=== PATIENT | male | born 1950 | race Caucasian/White ===

== ENCOUNTER 2019-07-06 07:23 | Day surgery (SDC) | payer MEDICARE, OTHER ==
[~2019-07-06 07:23] MED LIST: KETOROLAC TROMETHAMINE 0.45% 4 DROP/0.4 ML DROPERETTE OS PRN; LIDOCAINE 1%/PHENYLEPHRINE 1.5% 1 ML VIAL ONE
[2019-07-06] MEDS ORDERED: CHONDR SU A NA/HYALUR INTRAOC KIT (SURGICARE) ONE (07:28)
[2019-07-06] MEDS ORDERED: EPINEPHRINE INJ/PF 1 MG/1 ML AMPULE ONE (07:28)
[2019-07-06] MEDS: CYCLOPENTOLATE 0.2%/PHENYLEPHRINE 1% OPH SOLN 2 ML OS PRN ×3 (07:54→08:14)
[2019-07-06] MEDS: BESIFLOXACIN HCL 0.6% OPH SUSP 5 ML BOTTLE OS PRN ×4 (07:54→08:39)
[2019-07-06] MEDS: TROPICAMIDE 1% OPH SOLN 15 ML OS PRN ×3 (07:54→08:14)
[2019-07-06] MEDS: TETRACAINE HCL 0.5% OPH SOLN 4 ML OS PRN ×3 (07:55→08:23)
[2019-07-06] MEDS ORDERED: MIDAZOLAM 2 MG/2 ML INJ ONE ×2 (08:03→08:29)
[2019-07-06] MEDS ORDERED: FENTANYL CITRATE INJ/PF 100 MCG/2 ML AMPUL ONE (08:03)
[2019-07-06] MEDS: EPINEPHRINE INJ/PF 1 MG/1 ML AMPULE ONE ×2 (08:30)
[2019-07-06] MEDS: CHONDR SU A NA/HYALUR INTRAOC KIT (SURGICARE) ONE ×2 (08:30)
[2019-07-06] MEDS: LIDOCAINE 1% INJ-PF (10 MG/ML) 30 ML SDV ONE ×2 (08:30)
[2019-07-06] MEDS: TOBRAMYCIN SULFATE/DEXAMETH OPH OINTMENT 3.5 GM ONE ×2 (08:39)
[2019-07-06] MEDS: DORZOLAMIDE HCL 2%/TIMOLOL MALEAT 0.5% OPH SOLN 10 ML OS PRN ×2 (08:39)
== END 2019-07-06 09:18 | disposition home or self-care (01) ==
LOC: SC 07:23
PROVIDERS: ATTEND Ophthalmology
DX: H25.12 Age-related nuclear cataract, left eye (principal); E11.9 Type 2 diabetes mellitus without complications; I10 Essential (primary) hypertension; E78.00 Pure hypercholesterolemia, unspecified; E05.90 Thyrotoxicosis, unspecified without thyrotoxic crisis or storm; D57.1 Sickle-cell disease without crisis; G20 Parkinson's disease; Z79.899 Other long term (current) drug therapy
CPT/HCPCS: 82962; 66984; V2632; J2250; J3490 ×4; J0171; J3010; 142; J2370

== ENCOUNTER 2020-06-13 13:00 | Emergency (ER) | payer OTHER, MEDICARE ==
--- NOTE | 2020-06-13 14:13 | ER Document Report ---
HPI - HPI Time Seen by Provider: 06/13/20 13:59 Context: Patient is a 70-year-old male who presents emergency department with a chief complaint of right elbow swelling. Patient reports 1 month ago he tripped and fell onto his right elbow. Patient reports since then he has had a golf ball size soft tissue swelling to the elbow. States that this is not painful. Patient reports he has not followed up with his primary care physician for this. Patient denies redness, warmth or fever. Patient denies a limited range of motion. Past Medical History - General Information source: Patient - Social History Smoking Status: Unknown if Ever Smoked Lives with: Family Family History: None - Past Medical History Cardiac Medical History: Reports: Hx Hypertension Denies: Hx Heart Attack Pulmonary Medical History: Reports: None Denies: Hx Asthma EENT Medical History: Reports: None Neurological Medical History: Reports: None. Denies: Hx Cerebrovascular Accident, Hx Seizures Endocrine Medical History: Reports: None Renal/ Medical History: Reports: None Malignancy Medical History: Reports None GI Medical History: Reports: None. Denies: Hx Hepatitis, Hx Hiatal Hernia, Hx Ulcer Musculoskeletal Medical History: Reports None Skin Medical History: Reports None Psychiatric Medical History: Reports: None Traumatic Medical History: Reports: None Infectious Medical History: Reports: None. Denies: Hx Hepatitis Surgical Hx: Negative Past Surgical History: Denies: Hx Open Heart Surgery, Hx Pacemaker Vertical Provider Document - CONSTITUTIONAL Agree With Documented VS: Yes Exam Limitations: No Limitations General Appearance: No Apparent Distress - INFECTION CONTROL TRAVEL OUTSIDE OF THE [place] IN LAST 30 DAYS: No - HEENT HEENT: Atraumatic, Normal ENT Exam, Normocephalic, PERRLA - NECK Neck: Normal Inspection - RESPIRATORY Respiratory: Breath Sounds Normal, No Respiratory Distress - CARDIOVASCULAR Cardiovascular: Regular Rate, Regular Rhythm - GI/ABDOMEN Gastrointestinal: Abdomen Soft, Abdomen Non-Tender, Normal Bowel Sounds - MUSCULOSKELETAL/EXTREMETIES Notes: Patient has a golf ball size soft tissue mass located on the posterior olecranon. There is no erythema, ecchymosis discoloration of the skin. Patient can fully flex and extend at the elbow joint. Patient has a +2 brachial and radial pulse. - NEURO Level of Consciousness: Awake, Alert, Appropriate - DERM Integumentary: Warm, Dry, No Rash Course - Re-evaluation Re-evalutation: 06/13/20 14:12 Due to the initial injury and fall 1 month ago we will obtain an x-ray of the right elbow. It appears that the patient has a chronic bursitis. There is no signs of infection at this time. Patient instructed to follow-up with the [place] [facility]; typically they can manage bursitis where they may decide to refer to orthopedist. 06/13/20 14:43 Is of the x-ray confirmed diagnosis of bursitis. I did inform the patient to follow-up with the [place] for further management. Monitor for signs of infection including pain, inability to move the elbow joint. He can take anti- inflammatories if needed for pain or discomfort. - Vital Signs Vital signs: Temp Pulse Resp BP Pulse Ox 99.4 F 100 20 126/68 H 97 06/13/20 13:12 06/13/20 13:12 06/13/20 13:12 06/13/20 13:12 06/13/20 13:12 - Diagnostic Test Radiology reviewed: Reports reviewed Radiology results interpreted by me: 06/13/20 14:43 Elbow X-Ray 06/13/20 14:06 IMPRESSION: Findings suggest olecranon bursitis. No evidence of acute or suba cute osseous injury. Discharge - Discharge Clinical Impression: Bursitis Qualifiers: Bursitis location: elbow Elbow bursitis location: olecranon bursitis Laterality: right Qualified Code(s): M70.21 - Olecranon bursitis, right elbow Condition: Stable Disposition: HOME, SELF-CARE Additional Instructions: *Today are seen emergency department for right elbow swelling. Your x-ray was negative for any acute fracture. Please follow-up with the [place] [facility] as they can manage your bursitis. Currently there is not appear to be an infection. If there is any increase in pain, swelling, fever or inability to move the elbow joint you do need to seek medical attention immediately. You can use anti- inflammatories as well as rest. You do not so use a elbow splint that you can buy at a medical supply store or drugstore. Please make sure if you were splint that you still have range of motion of the elbow. Bursitis You have been diagnosed as having bursitis. Bursitis is an inflammation of a fluid pouch (bursa) found near joints. This is usually due to repeated minor irritation, or pressure directly on the bursa. On occasion, the bursitis can be due to infection (your doctor has checked for this). Sometimes the doctor decides to remove the fluid from the bursa with a needle. This may be to examine the fluid for infection or to ease the pressure caused by the fluid. The usual treatment is rest, local warmth, (or cold if the bursitis is caused by an acute injury), and antiinflammatory medication. Occasionally, an injection of cortisone is necessary. You should call the doctor for re-examination if the pain increases significantly, or if the area becomes severely swollen and red, or fever develops. Referrals: [facility] [[facility]] - Follow up as needed
--- NOTE | 2020-06-13 14:32 | RADIOLOGY REPORT (SQ) ---
EXAM DESCRIPTION: ELBOW RIGHT OVER 2 VIEWS IMAGES COMPLETED DATE/TIME: 06/13/2020 2:18 pm REASON FOR STUDY: Trauma x 1 month ago, right elbow COMPARISON: None. NUMBER OF VIEWS: Four views. TECHNIQUE: AP, lateral, and both oblique radiographic images acquired of the right elbow. LIMITATIONS: None. FINDINGS: MINERALIZATION: Normal. BONES: No acute fracture or dislocation. No worrisome bone lesions. Small triceps enthesophyte. JOINT: No effusion. SOFT TISSUES: Focal soft tissue swelling overlies the olecranon. OTHER: No other significant finding. IMPRESSION: Findings suggest olecranon bursitis. No evidence of acute or subacute osseous injury. TECHNICAL DOCUMENTATION: JOB ID: [id number] 2010 [employer]- All Rights Reserved Reading location - IP/workstation name: [email or web address]
[2020-06-13 14:54] VITALS: BP 115/80
== END 2020-06-13 14:53 | disposition home or self-care (01) ==
LOC: ER 13:00
DX: M70.21 Olecranon bursitis, right elbow (principal); M25.421 Effusion, right elbow; I10 Essential (primary) hypertension
CPT/HCPCS: 99283